=== PATIENT | male | born 1985 | race American Indian/Alaskan Native ===

== ENCOUNTER 2020-06-24 19:37 | Emergency (ER) | payer OTHER ==
[2020-06-24 19:44] VITALS: BP 119/79
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
--- NOTE | 2020-06-24 21:10 | XRay Report ---
LEFT FINGER 3 VIEWS INDICATION / CLINICAL INFORMATION: Pain and swelling COMPARISON: None available. FINDINGS: BONES / JOINT(S): Fracture/subluxation at the base of the middle phalanx of the fifth digit with a la rge avulsed fragment along the volar surface. No significant arthritis. SOFT TISSUES: No significant abnormality. ADDITIONAL FINDINGS: None. Signer Name: Slick Franco MD Signed: 06/24/2020 9:05 PM Workstation Name: [id number]
== END 2020-06-24 21:24 | disposition home or self-care (01) ==
LOC: ED 19:37
DX: S62.627A Displaced fracture of middle phalanx of left little finger, initial encounter for closed fracture (principal); Z98.890 Other specified postprocedural states; Z88.8 Allergy status to other drugs, medicaments and biological substances; X58.XXXA Exposure to other specified factors, initial encounter; Y93.89 Activity, other specified; Y92.89 Other specified places as the place of occurrence of the external cause; Y99.8 Other external cause status